=== PATIENT | female | born 1945 | race Caucasian/White ===

== ENCOUNTER 2019-01-16 06:40 | Day surgery (SDC) | payer MEDICARE ==
[~2019-01-16 06:40] MED LIST: Midazolam 1 MG/ML 2 ML SDV ONE; fentaNYL 100 MCG/2 ML SDV ONE
[2019-01-16] MEDS ORDERED: fentaNYL 100 MCG/2 ML SDV IV ONE (06:41)
[2019-01-16] MEDS ORDERED: Midazolam 1 MG/ML 2 ML SDV IV ONE (06:41)
[2019-01-16] MEDS: Dextrose 5%-0.45% NaCl 1,000 ML IV SCH (07:21)
[2019-01-16] MEDS: fentaNYL 100 MCG/2 ML SDV IV ONE ×2 (07:44→07:45)
[2019-01-16] MEDS: Midazolam 1 MG/ML 2 ML SDV IV ONE ×5 (07:45→07:50)
--- NOTE | 2019-01-16 12:08 | OR ---
DATE: 01/16/2019 PREOPERATIVE DIAGNOSIS: Personal history of prior colon polyps. POSTOPERATIVE DIAGNOSIS: Personal history of prior colon polyps. PROCEDURE: Total colonoscopy. ANESTHESIA: Conscious sedation with IV Versed and fentanyl. SPECIMEN: None. FINDINGS: Normal colonoscopy. RECOMMENDATION: Followup colonoscopy in 10 years. However, the patient will be 83 at that time and need to consider her general health and indication at that time. INDICATION FOR PROCEDURE: This 73-year-old female had prior colon polyps. She is here for followup. PROCEDURE IN DETAIL: After adequate preparation, a colonoscope was inserted into the rectum. This was somewhat difficult to pass through the midportion of the transverse colon. Multiple maneuvers were done to get the scope passed around the corners there. Eventually, I was able to get all the way to the cecum and confirmation of the cecum was made by visualization of the ileocecal valve and palpation in the right lower quadrant. The bowel prep was very good. On withdrawal of the scope, no abnormalities were noted. I did not notice any diverticula or recurrent polyps. Anal and rectal examinations are also normal. Air was suctioned from the colon and the scope removed. [facility] /[id number]
== END 2019-01-16 10:20 | disposition home or self-care (01) ==
LOC: DL.ENDO 06:40
PROVIDERS: ATTEND Surgery
DX: Z12.11 Encounter for screening for malignant neoplasm of colon (principal); I10 Essential (primary) hypertension; E11.9 Type 2 diabetes mellitus without complications; E03.9 Hypothyroidism, unspecified; Z86.010 Personal history of colon polyps; Z79.82 Long term (current) use of aspirin; Z79.84 Long term (current) use of oral hypoglycemic drugs; Z79.899 Other long term (current) drug therapy
CPT/HCPCS: G0105; G0121; J2250; J3010; J7042